=== PATIENT | male | born 1980 | race Hispanic/Latino ===

== ENCOUNTER 2017-08-10 19:41 | Emergency (ER) | payer BC | END 2017-08-10 21:56 | disposition home or self-care (01) | LOC: ERS 19:41 | DX: R05 Cough (principal); M67.439 Ganglion, unspecified wrist; F17.210 Nicotine dependence, cigarettes, uncomplicated | CPT/HCPCS: 99283 ==

== ENCOUNTER 2017-10-22 12:54 | Outpatient (CLI) | payer BC ==
[2017-10-22 13:53] LABS: Hemoglobin 14.6 g/dL (14.0-18.0); Mean Corpuscular HGB CONC 33.4 g/dL (32.0-36.0); Mean Corpuscular Hemoglobin 31.2 pg (27.0-31.0); Mean Corpuscular Volume 93.3 fl (80.0-94.0); Mean Platelet Volume 7.7 fL (7.4-10.4); Platelet Count 220 thou/uL (130-400); RBC Distribution Width 11.2 % (11.5-14.5); Red Blood Cell (RBC) Count 4.67 mill/uL (4.70-6.10); White Blood Cell (WBC) Count 7.2 thou/uL (4.8-10.8)
== END 2017-10-22 12:55 | disposition home or self-care (01) ==
LOC: LABBT 12:54
PROVIDERS: ATTEND Orthopaedic Surgery Hand Surgery
DX: Z01.812 Encounter for preprocedural laboratory examination (principal); M67.432 Ganglion, left wrist
CPT/HCPCS: 85027

== ENCOUNTER 2017-10-23 07:57 | Day surgery (SDC) | payer BC ==
[2017-10-22 13:25] VITALS: BMI 38.7
[2017-10-23] MEDS ORDERED: CEFAZOLIN/Water 2 GM/20 ML SYRINGE ONE (08:44)
[2017-10-23] MEDS ORDERED: Midazolam HCl 2 mg/2 ml Vial ONE (11:54)
[2017-10-23] MEDS ORDERED: Fentanyl 100 MCG/2 ML VIAL ONE (11:54)
[2017-10-23] MEDS ORDERED: Bupivacaine 0.5% 10 ML VIAL ONE ×2 (12:01→13:11)
[2017-10-23] MEDS ORDERED: Bacitracin Zinc Ointment 30 gm TUBE ONE (12:01)
[2017-10-23] MEDS ORDERED: Betamet Acet/Betamet Na Ph 30 MG/5 ML VIAL ONE (13:58)
[2017-10-23] MEDS ORDERED: Ketorolac Tromethamine 30 MG/ML VIAL ONE (14:59)
[2017-10-23] MEDS ORDERED: HYDROcodone/Acetaminophen 5/325 mg Tablet ONE (16:06)
[2017-10-23] MEDS ORDERED: Ondansetron HCl/PF 4 MG/2 ML Vial ONE (16:18)
[2017-10-23] MEDS ORDERED: Lidocaine 1% PF 5 ML VIAL ONE (16:18)
[2017-10-23] MEDS ORDERED: Propofol 200 MG/20 ML VIAL ONE (16:18)
[2017-10-23] MEDS ORDERED: Dexamethasone 20 MG/5 ML VIAL ONE (16:18)
--- NOTE | 2017-10-24 07:32 | OP ---
DATE OF SURGERY: 10/23/2017 PREOPERATIVE DIAGNOSIS: Left wrist ganglion with back wall mild pseudarthrosis over 4-5 mm area conn ection to the artery with the fluid be in a hematogenous color within the mass. PROCEDURE PERFORMED: 1. Left wrist arthrotomy with ganglion excision and synovectomy. 2. Left radial artery repair, the connection to the actual mass itself was a part of back wall radia l artery. SPECIMEN: A 4 cm area. FINDINGS: A mass 4 cm in diameter with the hematogenous appearance. ESTIMATED BLOOD LOSS: 250 mL. TOURNIQUET TIME: Total of approximately 50 minutes. Bleeding was from a 4 mm hole in the back wall radial artery where radial artery sat on top of the mass and had some adherence. SURGEON: Wilbert Colunga M.D. ANESTHESIA: [place] Anesthesia, general LMA technique, augmented by 20 mL of 0.5% Marcaine block, 1 0 before the procedure and 10 after. DESCRIPTION OF PROCEDURE: After successful general LMA technique, the limb was prepped and draped. A tourniquet inflated to 250 mmHg pressure. The zigzag incision began the palmar flexion crease slig htly radial to the flexor carpal radialis, but sparing the interval with nearest to the distal region . Then, we dissected down, and I knew from palpation in the office and in the hospital today that this mass had a pulsatile feel to it, but it appeared to be only in the region of the central ulnar, radia l branch, radial artery primary trunk. We carried through the skin, subcutaneous tissue to identify the radial artery, dissected that free but not able to move both ulnarly and radially if needed. Thi s was however finished, we ligated with a clip on as many branches as we could find, and then began t o follow the stalk down and went more ulnar aspect of the ulnar carpal joint and in the radial aspect , but we isolated, clipped its connection and put two clips on either end of the area that we release d. Then, once we finished dissecting the fragments on the radial artery adherent to the back wall of the cyst and being very complimentary. We now isolated the mass deep to the dorsal compartmen ts, had to release some of the fascia to achieve this. Then, we were able to lift the mass out after losing some of the "currant jelly" type appearance. It was here that the patient had the Celestone placed in wound. We held pressure after noticing a bleed, it took about 15 minutes to control, final ly suturing the bleeder which was a branch of the radial artery connected to other areas in plain sig ht. Hemostasis was excellent once performed this maneuver, and the patient left the operating room a fter running 4-0 Monocryl subcutaneous closure and the skin reapproximated with 4-0 nylon interrupted simple pattern.
== END 2017-10-23 17:30 | disposition home or self-care (01) ==
LOC: SDC 07:57
PROVIDERS: ATTEND Orthopaedic Surgery Hand Surgery
PROC: 0RBP0ZZ Excision of Left Wrist Joint, Open Approach (ICD-10-PCS; principal; 2017-10-23)
PROC: 03QC0ZZ Repair Left Radial Artery, Open Approach (ICD-10-PCS; principal; 2017-10-23)
PROC: 0LB60ZZ Excision of Left Lower Arm and Wrist Tendon, Open Approach (ICD-10-PCS; principal; 2017-10-23)
DX: M67.432 Ganglion, left wrist (principal); F17.200 Nicotine dependence, unspecified, uncomplicated; Z79.899 Other long term (current) drug therapy; Z88.6 Allergy status to analgesic agent; Z98.890 Other specified postprocedural states
CPT/HCPCS: 85027; 88304; 96372; 96374; J0702; J1100; J1885; J2001; J2250; J2270; J2405; J2704; J3010; J3490